=== PATIENT | male | born 1940 | race Caucasian/White ===

== ENCOUNTER 2017-09-22 11:58 | Inpatient (IN) | payer OTHER ==
[~2017-09-22] VITALS: Ht 180.3 cm; Wt 81.2 kg
[2017-09-22 12:02] VITALS: Ht 180.3 cm; Wt 81.2 kg
[2017-09-22 12:55] LABS: BASOPHIL % 0.7 % (0-2); PLATELET COUNT 293 x10^3mcL (130-400)
[2017-09-22 12:56] LABS: RED CELL DISTRIBUTION WIDTH 15.1 % (11.5-14.5)
[2017-09-22 13:17] LABS: CALCIUM 9.2 mg/dL (8.5-10.1); CHLORIDE SERUM 108 mmol/L (98-107); CREATININE SERUM 1.1 mg/dL (0.7-1.3); GLUCOSE SERUM 98 mg/dL (74-106); POTASSIUM SERUM 4.6 mmol/L (3.5-5.1); SODIUM SERUM 141 mmol/L (136-145)
[2017-09-22 13:22] LABS: ALBUMIN 3.5 g/dL (3.4-5.0); ALKALINE PHOSPHATASE 74 U/L (46-116); ALT/SGPT 8 U/L (16-63); AST/SGOT 34 U/L (15-37); BILIRUBIN TOTAL 0.22 mg/dL (0.20-1.00); TOTAL PROTEIN, SERUM 6.9 g/dL (6.4-8.2)
[2017-09-22] MEDS ORDERED: ATORVASTATIN CA40 M1 PO (13:55)
[2017-09-22] MEDS ORDERED: OMEPRAZOLE40 M1 PO (13:55)
[2017-09-22] MEDS ORDERED: FLOMAX0.4 MG PO (13:56)
[2017-09-22] MEDS ORDERED: MECLIZINE HYD12.5 MG (13:59)
[2017-09-22] MEDS ORDERED: IRON (13:59)
[2017-09-22] MEDS ORDERED: AREDS EYE (14:00)
[2017-09-22] MEDS ORDERED: CLEARLAX17 GM PO (14:01)
[2017-09-22] MEDS ORDERED: ACID REDUCER 1150 MG PO (14:02)
[2017-09-22] MEDS ORDERED: ACIDOPHILUS (14:04)
[2017-09-22] MEDS ORDERED: [UNRECOGNIZED DRUG - OTHER] (14:06)
[2017-09-22] MEDS ORDERED: B12 (14:07)
[2017-09-22 14:33] LABS: T3 TOTAL 1.11 ng/mL
[2017-09-22 14:38] LABS: CHOLESTEROL/HDL RATIO 3.9; MAGNESIUM 2.2 mg/dL (1.8-2.4); PHOSPHOROUS 3.9 mg/dL (2.5-4.9)
[2017-09-22 15:02] VITALS: BP 139/73
[2017-09-22 15:04] LABS: FREE T4 0.8 ng/dL (0.76-1.46); FREE THYROXINE INDEX 2.1 ug/dL (1.4-4.5); T4(THYROXINE) 6.2 ug/dL (4.7-13.3)
[2017-09-22 17:54] VITALS: BP 131/74
[2017-09-22 18:29] LABS: microscopic required? NO
[2017-09-22 18:36] LABS: UA SPECIFIC GRAVITY 1.015 (1.005-1.035); urine erythrocyte NEGATIVE (NEGATIVE)
[2017-09-22 19:13] LABS: AMPHETAMINE QUAL UR NONE DETECTED (See below)
[2017-09-22 20:52] VITALS: BP 125/78
[2017-09-23 05:17] VITALS: BP 102/56
[2017-09-23 06:51] LABS: BASOPHIL % 0.9 % (0-2); PLATELET COUNT 257 x10^3mcL (130-400); RED CELL DISTRIBUTION WIDTH 14.8 % (11.5-14.5)
[2017-09-23 06:53] LABS: CALCIUM 8.4 mg/dL (8.5-10.1); CARBON DIOXIDE 24.6 mmol/L (21-32); CHLORIDE SERUM 110 mmol/L (98-107); CREATININE SERUM 0.9 mg/dL (0.7-1.3); GLUCOSE SERUM 89 mg/dL (74-106); MAGNESIUM 2.2 mg/dL (1.8-2.4); PHOSPHOROUS 2.9 mg/dL (2.5-4.9); POTASSIUM SERUM 4.1 mmol/L (3.5-5.1); SODIUM SERUM 140 mmol/L (136-145)
[2017-09-23 10:17] VITALS: BP 130/80
[2017-09-23 13:27] VITALS: BP 144/80
[2017-09-23 17:34] VITALS: BP 110/78
[2017-09-23 21:23] VITALS: BP 116/74
[2017-09-24 05:42] LABS: BASOPHIL % 0.4 % (0-2); PLATELET COUNT 251 x10^3mcL (130-400)
[2017-09-24 05:46] VITALS: BP 138/78
[2017-09-24 05:48] LABS: RED CELL DISTRIBUTION WIDTH 14.9 % (11.5-14.5)
[2017-09-24 05:54] LABS: ALBUMIN 3.1 g/dL (3.4-5.0); ALKALINE PHOSPHATASE 82 U/L (46-116); ALT/SGPT 18 U/L (16-63); AST/SGOT 33 U/L (15-37); BILIRUBIN TOTAL 0.7 mg/dL (0.20-1.00); CARBON DIOXIDE 23.2 mmol/L (21-32); CHLORIDE SERUM 110 mmol/L (98-107); CREATININE SERUM 0.8 mg/dL (0.7-1.3); GLUCOSE SERUM 89 mg/dL (74-106); POTASSIUM SERUM 4.1 mmol/L (3.5-5.1); SODIUM SERUM 143 mmol/L (136-145); TOTAL PROTEIN, SERUM 6.4 g/dL (6.4-8.2)
[2017-09-24 09:37] VITALS: BP 113/70
[2017-09-24] MEDS ORDERED: ECO81 PO (13:24)
[2017-09-24] MEDS ORDERED: ONDANSETRON4 M3 PO (13:24)
[2017-09-24] MEDS ORDERED: FER300 PO (13:24)
[2017-09-24] MEDS ORDERED: NOR10T PO (13:29)
[2017-09-24] MEDS ORDERED: COL100 PO (13:40)
[2017-09-24 13:43] VITALS: BP 143/80
[2017-09-24 17:45] VITALS: BP 143/80
[2017-09-24 17:55] VITALS: BP 141/79
[2017-09-24 18:19] VITALS: BP 141/78
== END 2017-09-24 19:55 | disposition short-term general hospital (02) | DRG 308 ==
LOC: ED 11:58 → DU 13:44
PROVIDERS: Emergency Medicine; Family Medicine; Internal Medicine Pulmonary Disease
DX: R00.1 Bradycardia, unspecified (principal); N17.0 Acute kidney failure with tubular necrosis; G45.9 Transient cerebral ischemic attack, unspecified; I49.1 Atrial premature depolarization; G90.9 Disorder of the autonomic nervous system, unspecified; I25.10 Atherosclerotic heart disease of native coronary artery without angina pectoris; K21.9 Gastro-esophageal reflux disease without esophagitis; N40.0 Benign prostatic hyperplasia without lower urinary tract symptoms; K59.00 Constipation, unspecified; E78.5 Hyperlipidemia, unspecified; D64.9 Anemia, unspecified; Z68.24 Body mass index [BMI] 24.0-24.9, adult; Z95.1 Presence of aortocoronary bypass graft
CPT/HCPCS: 83880; 84439; J7030; Q0092